=== PATIENT | female | born 1975 | race African-American/Black ===

== ENCOUNTER 2016-11-30 21:14 | Emergency (ER) | payer SELFPAY ==
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
[~2016-11-30 21:14] MED LIST: IBUPROFEN800 MG PO
== END 2016-11-30 21:17 | disposition home or self-care (01) ==
LOC: CFTX 21:14
DX: S60.221A Contusion of right hand, initial encounter (principal); V49.50XA Passenger injured in collision with unspecified motor vehicles in traffic accident, initial encounter; Y92.410 Unspecified street and highway as the place of occurrence of the external cause
CPT/HCPCS: 73060; 73080; 73130; 99284